=== PATIENT | female | born 1955 | race Caucasian/White ===

== ENCOUNTER 2018-06-04 08:44 | Emergency (ER) | payer OTHER ==
[~2018-06-04] VITALS: Ht 160 cm; Wt 68.0 kg
[2018-06-04 08:49] VITALS: BP 121/84
[2018-06-04] MEDS ORDERED: KETOROLAC TROMETH 60MG/2ML VIAL IM ONE (09:15)
== END 2018-06-04 10:35 | disposition home or self-care (01) ==
LOC: ER 08:44
DX: S29.019A Strain of muscle and tendon of unspecified wall of thorax, initial encounter (principal); V43.52XA Car driver injured in collision with other type car in traffic accident, initial encounter; Y93.89 Activity, other specified; Y99.8 Other external cause status; Y92.410 Unspecified street and highway as the place of occurrence of the external cause
CPT/HCPCS: 71101; 96372; 99284; J1885

== ENCOUNTER → 2023-11-20 | Emergency (ER) | payer OTHER ==
[~2023-11-20] VITALS: Ht 160 cm; Wt 90.0 kg
[2023-11-20 12:42] VITALS: PULSE 61; RESP 18; O2SAT 98
[2023-11-20] MEDS: ONDANSETRON HCL 4 MG/2 ML VIAL IV ONE ×2 (13:01→15:04)
[2023-11-20] MEDS: MORPHINE SULFATE 4 MG/ML SYR/VIAL IV ONE ×2 (13:06→15:06)
[2023-11-20 13:12] LABS: Basophils # (auto) 0 10 ^3/uL (0-0.2); Basophils % (auto) 0.2 % (0.0-2.0); Eosinophils # (auto) 0.1 10 ^3/uL (0-0.8); Hematocrit 41.8 % (36.0-46.0); Lymphocytes % (auto) 15.1 % (10.0-50.0); Mean Corpuscular Hemoglobin 28.8 pg (28.0-32.0); Mean Corpuscular Hgb Conc. 33.4 g/dL (32.0-36.0); Mean Corpuscular Volume 86.3 fL (80.0-100.0); Monocytes # (auto) 0.7 10 ^3/uL (0-1.3); Monocytes % (auto) 5.1 % (0.0-12.0); Neutrophils # (auto) 10.7 10 ^3/uL (1.6-8.6); Neutrophils % (auto) 78.6 % (37.0-80.0); Red Blood Cells 4.84 10^6/uL (4.0-5.20); Red Cell Distribution Width 12.7 % (11.8-14.3); White Blood Cell 13.6 10^3/uL (4.4-10.8)
[2023-11-20] MEDS: ceFAZolin 1GM/50ML 50 ML IV ONE (13:19)
[2023-11-20 13:22] LABS: Chloride 108 mmol/L (98-107); Potassium 4.3 mmol/L (3.5-5.1); Sodium 142 mmol/L (136-145)
[2023-11-20] MEDS: SODIUM CHLORIDE 0.9% 500 ML IV ONE (13:22)
[2023-11-20 13:23] LABS: Anion Gap 8 (5-15); Calcium 10.5 mg/dL (8.5-10.1); Carbon Dioxide 26 mmol/L (20-30)
[2023-11-20 13:25] LABS: INR 1.03 (0.9-1.15); Partial Thromboplastin Time 21.4 SEC (24.5-34.5); Prothrombin Time 10.8 sec (9.3-11.8)
[2023-11-20 13:28] LABS: BUN/Creatinine Ratio 12.8 (10.0-20.0); Blood Urea Nitrogen 14 mg/dL (9-23); Glucose 162 mg/dL (74-106)
[2023-11-20] MEDS: TETANUS-DIPTH-ACEL PERTUSSIS 0.5ML SYR Tdap IM ONE (13:29)
[2023-11-20 14:57] VITALS: TEMP 98; O2SAT 100
[2023-11-20 15:41] VITALS: BP 141/88; PULSE 78; RESP 16
== END | disposition short-term general hospital (02) ==
LOC: EDUNIT# 12:36 → EDBD 12:37 → ER 12:37
DX: S82.301A Unspecified fracture of lower end of right tibia, initial encounter for closed fracture (principal); S82.401A Unspecified fracture of shaft of right fibula, initial encounter for closed fracture; S40.011A Contusion of right shoulder, initial encounter; I10 Essential (primary) hypertension; D72.829 Elevated white blood cell count, unspecified; W18.39XA Other fall on same level, initial encounter; Y93.89 Activity, other specified; Y92.89 Other specified places as the place of occurrence of the external cause; Y99.8 Other external cause status
CPT/HCPCS: 29515; 36415; 73030; 73600; 80048; 85025; 85610; 85730; 90471; 90715; 96365; 96375; 96376; 99285; J0690; J2270; J2405; J7040